=== PATIENT | male | born 1930 | race Caucasian/White ===

== ENCOUNTER 2016-10-24 15:47 | Emergency (ER) | payer MEDICARE, OTHER ==
[~2016-10-24 15:47] MED LIST: APA PO; BALANCE B-501 TA1; CEPHALEXIN500 M1 PO; CILOSTAZOL100 MG PO; CLOBETASOL PROP0.055 TP; CLONIDINE0.1 MG PO; CLOPIDOGREL BIS75 MG PO; CO Q1030 MG PO; COMBIVENT RESPI1 SPR IH; CROMOLYN S5.2 MG/ACT NS; DUO-KAPS1 CAP PO; FEXOFENADINE60 MG PO; FLOMAX 0.40.4 MG/CAP PO; HYDROCODONE PO; LEVOTHROID0.05 MG PO; LEVOTHYROXINE0.05 MG PO; LORTAB 5/500 501 TAB PO; METOPROLOL TART25 MG PO; MULTI-DAY PLUS1 TA1; NATURE'S BLEND400 I1 PO; OMEGA-3 1000 MG1 SGL; POMEGRANATE WIT1 CAP; PRAVACHOL10 MG PO; VIAGRA50 MG PO; VITAMIN B COMPL1 T16 PO; VITAMIN C500 MG PO; ZANTAC 15OMG150 MG PO
[2016-10-24] MEDS ORDERED: SPIRIVA RE2.5 MCG/Ac IH (16:29)
[2016-10-24] MEDS ORDERED: AGGRENOX 25 MG-1 CER PO (16:35)
[2016-10-24] MEDS ORDERED: TRAMADOL 50 MG TAB PO (16:36)
[2016-10-24] MEDS ORDERED: PLETAL 100MG T100 MG PO (16:36)
[2016-10-24] MEDS ORDERED: ODOR FREE GARL1 EAC1 PO (16:37)
[2016-10-24] MEDS ORDERED: CO Q-1010 M2 PO (16:37)
[2016-10-24] MEDS ORDERED: LOPRESSOR 225 MG/TAB PO (16:56)
[2016-10-24 18:40] VITALS: BP 100/43
== END 2016-10-24 18:40 | disposition other institution (70) ==
LOC: ED 15:47
DX: J44.1 Chronic obstructive pulmonary disease with (acute) exacerbation (principal); R50.9 Fever, unspecified; D72.825 Bandemia; R53.1 Weakness; R53.81 Other malaise; Z87.891 Personal history of nicotine dependence; I10 Essential (primary) hypertension; E03.9 Hypothyroidism, unspecified
CPT/HCPCS: A4354; J2405

== ENCOUNTER 2016-10-24 18:38 | Inpatient (IN) | payer MEDICARE, OTHER ==
[~2016-10-24] VITALS: Ht 190.5 cm; Wt 83.4 kg
[~2016-10-24 18:38] MED LIST changes: +AGGRENOX 25 MG-1 CER PO; +CO Q-1010 M2 PO; +LOPRESSOR 225 MG/TAB PO; +ODOR FREE GARL1 EAC1 PO; +PLETAL 100MG T100 MG PO; +SPIRIVA RE2.5 MCG/Ac IH; +TRAMADOL 50 MG TAB PO
[2016-10-24 18:46] VITALS: BP 100/43
[2016-10-24 19:00] VITALS: BP 100/45
[2016-10-24 23:20] VITALS: BP 103/51
[2016-10-25 03:25] VITALS: BP 154/76
[2016-10-25 06:27] VITALS: BP 143/79
[2016-10-25 11:12] VITALS: BP 144/63
[2016-10-25 15:08] VITALS: BP 130/59
[2016-10-25 18:38] VITALS: BP 144/67
[2016-10-25 23:32] VITALS: BP 135/72
[2016-10-26 03:17] VITALS: BP 156/71
[2016-10-26 06:22] VITALS: BP 124/81
[2016-10-26 11:10] VITALS: BP 135/62
[2016-10-26 15:23] VITALS: BP 147/68
[2016-10-26 18:11] VITALS: BP 141/61
[2016-10-26 23:55] VITALS: BP 135/64
[2016-10-27 03:01] VITALS: BP 164/66
[2016-10-27 06:20] VITALS: BP 180/87
[2016-10-27 11:03] VITALS: BP 155/73
== END 2016-10-27 09:42 | disposition swing bed (61) | DRG 190 ==
LOC: MED/SURG 18:38
PROVIDERS: ADMIT Nurse Practitioner Family
DX: J44.0 Chronic obstructive pulmonary disease with (acute) lower respiratory infection (principal); J18.9 Pneumonia, unspecified organism; I10 Essential (primary) hypertension; E03.9 Hypothyroidism, unspecified; Z85.46 Personal history of malignant neoplasm of prostate; Z87.891 Personal history of nicotine dependence; R26.9 Unspecified abnormalities of gait and mobility
CPT/HCPCS: A9270-GY; J0696; J1650; J2930; J7030; Q9967

== ENCOUNTER 2016-10-27 09:20 | Inpatient (IN) | payer MEDICARE, OTHER ==
[~2016-10-27] VITALS: Ht 190.5 cm; Wt 83.4 kg
[2016-10-27 10:02] VITALS: BP 155/73
[2016-10-27 10:04] VITALS: BP 155/73
[2016-10-27 18:09] VITALS: BP 127/62
[2016-10-28 06:20] VITALS: BP 170/84
[2016-10-28 18:01] VITALS: BP 129/51
[2016-10-29 06:21] VITALS: BP 167/62
[2016-10-29 18:36] VITALS: BP 117/59
[2016-10-30 06:27] VITALS: BP 192/90
[2016-10-30 18:16] VITALS: BP 132/59
[2016-10-31 06:20] VITALS: BP 175/86
[2016-10-31 18:18] VITALS: BP 137/53
[2016-11-01 06:24] VITALS: BP 170/68
[2016-11-01 17:58] VITALS: BP 108/47
[2016-11-02 06:26] VITALS: BP 161/78
== END 2016-11-02 15:49 | disposition home or self-care (01) | DRG 190 ==
LOC: MED/SURG 09:20
PROVIDERS: ADMIT Physician Assistant
DX: J44.0 Chronic obstructive pulmonary disease with (acute) lower respiratory infection (principal); J18.9 Pneumonia, unspecified organism; R53.81 Other malaise; I10 Essential (primary) hypertension; E03.9 Hypothyroidism, unspecified; E87.5 Hyperkalemia; R39.15 Urgency of urination; L98.8 Other specified disorders of the skin and subcutaneous tissue; R19.4 Change in bowel habit
CPT/HCPCS: A9270-GY; J7512